=== PATIENT | female | born 1965 | race African-American/Black ===

== ENCOUNTER 2016-12-19 09:42 | Emergency (ER) | payer MEDICARE, OTHER ==
[2016-12-19 09:50] VITALS: BP 167/119
[2016-12-19] MEDS ORDERED: LIDO:MAALOX 1:1 20 ML SINGLE DOSE PO ONE (10:15)
[2016-12-19] MEDS ORDERED: ONDANSETRON ODT 4 MG TAB.RAPDIS PO ONE (10:15)
[2016-12-19] MEDS ORDERED: IV NORMAL SALINE 1,000ML 1,000 ML IV SCH (10:37)
[2016-12-19] MEDS ORDERED: KETOROLAC 30 MG/ML VIAL. IV ONE (11:00)
[2016-12-19 11:41] LABS: ALBUMIN 3.5 g/dL (3.4-5.0); ALBUMIN/GLOBULIN RATIO 0.9 (1.0-1.7); CALCIUM 9.3 mg/dL (8.5-10.1); CREATININE 0.9 mg/dL (0.6-1.0); GFR 79.9; POTASSIUM 4.2 mmol/L (3.5-5.1); TOTAL BILIRUBIN 0.3 mg/dL (0.2-1.0); TOTAL PROTEIN 7.3 g/dL (6.4-8.2)
[2016-12-19 11:58] LABS: BASO # 0.1 x10^3/uL (0.0-0.2); BASO % 2 % (0-3); EOS # 0.2 x10^3/uL (0.0-0.7); EOS % 4 % (0-3); HEMATOCRIT 40.9 % (36.0-47.0); HEMOGLOBIN 13.2 g/dL (12.0-15.5); LYMPH # 2.3 x10^3/uL (1.0-4.8); LYMPH % 38 % (24-48); MEAN CORPUSCULAR HEMOGLOBIN 27 pg (25-35); MEAN CORPUSCULAR HGB CONC 32 g/dL (31-37); MEAN CORPUSCULAR VOLUME 82 fL (79-100); MONO # 0.5 x10^3/uL (0.0-1.1); MONO % 8 % (0-9); NEUT % 49 % (31-73); PLATELET COUNT 258 x10^3/uL (140-400); RED BLOOD COUNT 4.97 x10^6/uL (3.50-5.40); RED CELL DISTRIBUTION WIDTH 15.1 % (11.5-14.5); WHITE BLOOD COUNT 6.2 x10^3/uL (4.0-11.0)
--- NOTE | 2016-12-19 12:04 | PHYS DOC ---
Adult General Chief Complaint Chief Complaint: ABDOMINAL PAIN HPI HPI Patient is a 51 year old F who presents with dull constant epigastric pain that does not radiate and is worsened by "putting anything in her stomach." She states that she has a history of similar symptoms but not vomiting. She states that the pain has been going on for about 2-3 days but the vomiting just started last night. No blood in her vomit. She has been stooling normally. No other associated symptoms or concerns at this time. Review of Systems Review of Systems Constitutional: Denies fever or chills [] Eyes: Denies change in visual acuity, redness, or eye pain [] HENT: Denies nasal congestion or sore throat [] Respiratory: Denies cough or shortness of breath [] Cardiovascular: No additional information not addressed in HPI [] GI: Neg except HPI : Denies dysuria or hematuria [] Musculoskeletal: Denies back pain or joint pain [] Integument: Denies rash or skin lesions [] Neurologic: Denies headache, focal weakness or sensory changes [] Endocrine: Denies polyuria or polydipsia [] Family History Family History non contributory Current Medications Current Medications Current Medications Medications (Trade) Dose Ordered Sig/Alfred[facility] Start Time Stop Time Status Last Admin Dose Admin Ketorolac Tromethamine (Toradol) 30 mg 1X ONCE 12/19/16 11:00 12/19/16 11:01 DC 12/19/16 11:11 30 MG Multi-Ingredient Mouthwash/Gargle (Gi Cocktail) 20 ml 1X ONCE 12/19/16 10:15 12/19/16 10:33 DC 12/19/16 10:24 20 ML Ondansetron HCl (Zofran Odt) 4 mg 1X ONCE 12/19/16 10:15 12/19/16 10:33 DC 12/19/16 10:24 4 MG Sodium Chloride 1,000 ml @ 1,000 mls/hr Q1H 12/19/16 10:37 12/19/16 11:36 DC 12/19/16 11:10 1,000 MLS/HR Home meds were reviewed Allergies Allergies Coded Allergies Type Severity Reaction Last Updated Verified No Known Drug Allergies 12/19/16 No Physical Exam Physical Exam Constitutional: Well developed, well nourished, no acute distress, non-toxic appearance. [] HENT: Normocephalic, atraumatic, bilateral external ears normal, oropharynx moist, no oral exudates, nose normal. [] Eyes: PERRLA, EOMI, conjunctiva normal, no discharge. [] Neck: Normal range of motion, no tenderness, supple, no stridor. [] Cardiovascular:Heart rate regular rhythm, no murmur [] Lungs & Thorax: Bilateral breath sounds clear to auscultation [] Abdomen: Bowel sounds normal, soft, no masses, no pulsatile masses. Mild to moderate TTP over the epigastric region only. No significant RUQ TTP Skin: Warm, dry, no erythema, no rash. [] Back: No tenderness, no CVA tenderness. [] Extremities: No tenderness, no cyanosis, no clubbing, ROM intact, no edema. [] Neurologic: Alert and oriented X 3, normal motor function, normal sensory function, no focal deficits noted. [] Psychologic: Affect normal, judgement normal, mood normal. [] Current Patient Data Lab Results Laboratory Tests Test 12/19/16 11:15 Sodium Level 139 mmol/L (136-145) Potassium Level 4.2 mmol/LNursery Laboratory Tests 12/19/16 11:15: Sodium Level 139, Potassium Level 4.2, Chloride Level 102, Carbon Dioxide Level 27, Anion Gap 10, Blood Urea Nitrogen 15, Creatinine 0.9, Estimated GFR ( Cockcroft-Gault) 79.9, BUN/Creatinine Ratio 17, Glucose Level 93, Calcium Level 9.3, Total Bilirubin 0.3, Aspartate Amino Transf (AST/SGOT) 21, Alanine Aminotransferase (ALT/SGPT) 22, Alkaline Phosphatase 103, Total Protein 7.3, Albumin 3.5, Albumin/Globulin Ratio 0.9, Lipase 50 12/19/16 11:42: White Blood Count 6.2, Red Blood Count 4.97, Hemoglobin 13.2, Hematocrit 40.9, Mean Corpuscular Volume 82, Mean Corpuscular Hemoglobin 27, Mean Corpuscular Hemoglobin Concent 32, Red Cell Distribution Width 15.1, Platelet Count 258, Neutrophils (%) (Auto) 49, Lymphocytes (%) (Auto) 38, Monocytes (%) (Auto) 8, Eosinophils (%) (Auto) 4, Basophils (%) (Auto) 2, Neutrophils # (Auto) 3.0, Lymphocytes # (Auto) 2.3, Monocytes # (Auto) 0.5, Eosinophils # (Auto) 0.2, Basophils # (Auto) 0.1 (3.5-5.1) Chloride Level 102 mmol/L (98-107) Carbon Dioxide Level 27 mmol/L (21-32) Anion Gap 10 (6-14) Blood Urea Nitrogen 15 mg/dL (7-20) Creatinine 0.9 mg/dL (0.6-1.0) Estimated GFR (Cockcroft-Gault) 79.9 BUN/Creatinine Ratio 17 (6-20) Glucose Level 93 mg/dL (70-99) Calcium Level 9.3 mg/dL (8.5-10.1) Total Bilirubin 0.3 mg/dL (0.2-1.0) Aspartate Amino Transferase (AST) 21 U/L (15-37) Alanine Aminotransferase (ALT) 22 U/L (14-59) Alkaline Phosphatase 103 U/L (46-116) Total Protein 7.3 g/dL (6.4-8.2) Albumin 3.5 g/dL (3.4-5.0) Albumin/Globulin Ratio 0.9 (1.0-1.7) L Lipase 50 U/L (73-393) L CBC was normal Radiology/Procedures Radiology/Procedures Imaging was declined Course & Med Decision Making Course & Med Decision Making Pertinent Labs and Imaging studies reviewed. (See chart for details) Imaging was declined Dragon Disclaimer Dragon Disclaimer This chart was dictated in whole or in part using Voice Recognition software in a busy, high-work load, and often noisy Emergency Department environment. It may contain unintended and wholly unrecognized errors or omissions. Departure Departure: Impression: Primary Impression: Viral gastritis Disposition: 01 HOME, SELF-CARE Condition: IMPROVED Referrals: PITO SAAVEDRA PA-C (PCP) Patient Instructions: Gastritis, Adult Additional Instructions: Heide was seen in the ED for abdominal pain. No emergency medical condition was found during the history and physical exam. She did have normal labs. She was given IV fluids and pain medication. Her symptoms were most consistent with Viral gastritis vs. Peptic ulcer disease. She was advised to consider an EGD, or upper endoscopy, for further evaluation. She was given a script for Protonix to be taken over the next 2weeks. She was advised to follow up with her primary care doctor as soon as possible for further management. Scripts Pantoprazole Sodium (PROTONIX) 40 Mg Tablet.dr 1 TAB PO DAILY, #14 TAB 5 Refills Prov: YESSY MILIAN MD 12/19/16 YESSY MILIAN MD Dec 19, 2016 12:04
[2016-12-19] MEDS ORDERED: PANT40TA3 PO (12:15)
[2016-12-19] MEDS ORDERED: MORPHINE SULFATE 4 MG/ML DISP.SYRIN. ONE (12:32)
[2016-12-19] MEDS ORDERED: MORPHINE SULFATE 4 MG/ML DISP.SYRIN. IM ONE (12:55)
== END 2016-12-19 13:00 | disposition home or self-care (01) ==
LOC: ER 09:42
DX: A08.4 Viral intestinal infection, unspecified (principal)
CPT/HCPCS: 36415; 80053; 83690; 85027; 96361; 96374; 99285; J1885; Q0162; J7030

== ENCOUNTER 2020-05-29 11:08 | Emergency (ER) | payer MEDICARE ==
[~2020-05-29] VITALS: Ht 167.6 cm; Wt 99.4 kg
[~2020-05-29 11:08] MED LIST: PANT40TA3 PO
[2020-05-29 11:10] VITALS: BP 162/87
[2020-05-29] MEDS ORDERED: KETOROLAC 30 MG/ML VIAL. IM ONE (12:00)
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
== END 2020-05-29 13:13 | disposition home or self-care (01) ==
LOC: ER 11:08 → EEVIPCON 11:08 → ER 13:13
DX: S70.01XA Contusion of right hip, initial encounter (principal); S09.90XA Unspecified injury of head, initial encounter; F41.9 Anxiety disorder, unspecified; F32.9 Major depressive disorder, single episode, unspecified; M79.7 Fibromyalgia; I10 Essential (primary) hypertension; Z98.84 Bariatric surgery status; Y08.89XA Assault by other specified means, initial encounter; Y93.89 Activity, other specified; Y92.89 Other specified places as the place of occurrence of the external cause; Y99.8 Other external cause status
CPT/HCPCS: 70450; 73502; 96372; 99284; J1885